=== PATIENT | male | born 1955 | race Caucasian/White ===

== ENCOUNTER 2016-11-25 13:34 | Inpatient (IN) | payer MEDICARE ==
[~2016-11-25] VITALS: Ht 200.7 cm; Wt 117.0 kg
[2016-11-25] MEDS ORDERED: MORPHINE SULFATE 4 MG/ML DISP.SYRIN. IV/SQ PRN (14:00)
[2016-11-25] MEDS ORDERED: ASPIRIN 325 MG TABLET PO ONE (14:00)
[2016-11-25 14:08] LABS: BASO # 0.1 x10^3/uL (0.0-0.2); BASO % 1 % (0-3); EOS % 2 % (0-3); HEMATOCRIT 50.4 % (39.0-53.0); HEMOGLOBIN 17.3 g/dL (13.0-17.5); LYMPH # 3.1 x10^3/uL (1.0-4.8); LYMPH % 38 % (24-48); MEAN CORPUSCULAR HEMOGLOBIN 33 pg (25-35); MEAN CORPUSCULAR HGB CONC 34 g/dL (31-37); MEAN CORPUSCULAR VOLUME 96 fL (79-100); MONO % 7 % (0-9); NEUT % 52 % (31-73); PLATELET COUNT 188 x10^3/uL (140-400); RED BLOOD COUNT 5.25 x10^6/uL (4.30-5.70); RED CELL DISTRIBUTION WIDTH 14.3 % (11.5-14.5)
[2016-11-25 14:18] LABS: INR 1.2 (0.8-1.1); PROTHROMBIN TIME PATIENT 14.5 SEC (11.7-14.0)
[2016-11-25 14:19] LABS: CALCIUM 8.5 mg/dL (8.5-10.1); CREATININE 1.1 mg/dL (0.7-1.3); GFR 67.6; POTASSIUM 3.9 mmol/L (3.5-5.1)
[2016-11-25 14:24] LABS: ALBUMIN 3.3 g/dL (3.4-5.0); ALBUMIN/GLOBULIN RATIO 0.9 (1.0-1.7); TOTAL BILIRUBIN 0.4 mg/dL (0.2-1.0); TOTAL PROTEIN 6.9 g/dL (6.4-8.2)
--- NOTE | 2016-11-25 14:30 | RAD ---
EXAM: Chest one view. HISTORY: Chest pain. COMPARISON: None. FINDINGS: A frontal view of the chest is obtained. There are no confluent infiltrates. Hyperinflation is consistent with chronic obstructive pulmonary disease. There is no pneumothorax or pleural effusion. The heart is not enlarged. IMPRESSION: 1. Chronic obstructive pulmonary disease. No confluent infiltrates.
--- NOTE | 2016-11-25 14:38 | PHYS DOC ---
Past Medical History Past Medical History: Bipolar, COPD, Depression, Pneumonia, Other Additional Past Medical Histor: Derier's disease, tremors Past Surgical History: Cholecystectomy, Tonsillectomy, Other Additional Past Surgical Histo: prosthetic rt eye, polyps in colon removed, Additional Information: 1ppd Alcohol Use: None Drug Use: None Adult General Chief Complaint Chief Complaint: CHEST PAIN HPI HPI Patient is a 61 year old male who presents with chest pain. The patient reports onset of symptoms 2 hours prior to arrival while smoking. He states pain is left sided/substernal, feels like tightness, radiates down left arm. He reports associated shortness of breath & diaphoresis/clamminess, but denies nausea. Denies fevers/chills, cough, lower extremity pain/swelling. Pain improving after receiving nitro by EMS en route, also received aspirin. He reports previous history of similar pain but he never saw a doctor for workup. He reports history of COPD. Family history of CVA in his mother. PCP at the [facility]. Review of Systems Review of Systems Constitutional: Denies fever or chills Eyes: Denies change in visual acuity HENT: Denies nasal congestion or sore throat Respiratory: Denies cough, reports shortness of breath Cardiovascular: Reports chest pain, denies edema GI: Denies abdominal pain, nausea, vomiting, bloody stools or diarrhea : Denies dysuria or hematuria Musculoskeletal: Denies back pain or joint pain Integument: Denies rash or skin lesions Neurologic: Denies headache, focal weakness or sensory changes Current Medications Current Medications Current Medications Medications (Trade) Dose Ordered Sig/Rajiv Start Time Stop Time Status Last Admin Dose Admin Aspirin (Maris Aspirin) 325 mg 1X ONCE 11/25/16 14:00 11/25/16 14:01 DC Morphine Sulfate 4 mg PRN Q15MIN PRN 11/25/16 14:00 11/25/16 19:48 DC Allergies Allergies Allergies Coded Allergies Type Severity Reaction Last Updated Verified No Known Drug Allergies 05/28/14 No Physical Exam Physical Exam Constitutional: Well developed, well nourished, no acute distress, non-toxic appearance. HENT: Normocephalic, atraumatic, bilateral external ears normal, oropharynx moist, nose normal. Eyes: conjunctiva normal, no discharge. Neck: supple, no stridor. Cardiovascular: RRR, no murmurs, no edema. Lungs & Thorax: LCTAB, no wheezing, no respiratory distress. no reproducible tenderness with palpation over the anterior chest wall. Abdomen: soft, nontender, nondistended. Skin: Warm, dry, no erythema, no rash. Back: No tenderness. Extremities: No tenderness, no edema. no calf tenderness or swelling. Neurologic: Alert and oriented X 3, no focal deficits noted. Psychologic: Affect normal, judgement normal, mood normal. Current Patient Data Vital Signs Vital Signs Date Time Temp Pulse Resp B/P (MAP) Pulse Ox O2 Delivery O2 Flow Rate FiO2 11/25/16 14:55 46 15 115/61 (79) 93 Room Air 11/25/16 13:34 98.0 98.0 Lab Values Laboratory Tests Test 11/25/16 13:55 White Blood Count 8.0 x10^3/uL (4.0-11.0) Red Blood Count 5.25 x10^6/uL (4.30-5.70) Hemoglobin 17.3 g/dL (13.0-17.5) Hematocrit 50.4 % (39.0-53.0) Mean Corpuscular Volume 96 fL (79-100) Mean Corpuscular Hemoglobin 33 pg (25-35) Mean Corpuscular Hemoglobin Concent 34 g/dL (31-37) Red Cell Distribution Width 14.3 % (11.5-14.5) Platelet Count 188 x10^3/uL (140-400) Neutrophils (%) (Auto) 52 % (31-73) Lymphocytes (%) (Auto) 38 % (24-48) Monocytes (%) (Auto) 7 % (0-9) Eosinophils (%) (Auto) 2 % (0-3) Basophils (%) (Auto) 1 % (0-3) Neutrophils # (Auto) 4.1 x10^3uL (1.8-7.7) Lymphocytes # (Auto) 3.1 x10^3/uL (1.0-4.8) Monocytes # (Auto) 0.6 x10^3/uL (0.0-1.1) Eosinophils # (Auto) 0.2 x10^3/uL (0.0-0.7) Basophils # (Auto) 0.1 x10^3/uL (0.0-0.2) Prothrombin Time 14.5 SEC (11.7-14.0) H Prothrombin Time INR 1.2 (0.8-1.1) H PTT 37 SEC (24-38) Sodium Level 139 mmol/L (136-145) Potassium Level 3.9 mmol/L (3.5-5.1) Chloride Level 105 mmol/L (98-107) Carbon Dioxide Level 25 mmol/L (21-32) Anion Gap 9 (6-14) Blood Urea Nitrogen 14 mg/dL (8-26) Creatinine 1.1 mg/dL (0.7-1.3) Estimated GFR (Cockcroft-Gault) 67.6 BUN/Creatinine Ratio 13 (6-20) Glucose Level 98 mg/dL (70-99) Calcium Level 8.5 mg/dL (8.5-10.1) Total Bilirubin 0.4 mg/dL (0.2-1.0) Aspartate Amino Transferase (AST) 14 U/L (15-37) L Alanine Aminotransferase (ALT) 20 U/L (16-63) Alkaline Phosphatase 53 U/L (46-116) Troponin I Quantitative < 0.017 ng/mL (0.000-0.055) TH-Mvx-B-Type Natriuretic Peptide 100 pg/mL (0-124) Total Protein 6.9 g/dL (6.4-8.2) Albumin 3.3 g/dL (3.4-5.0) L Albumin/Globulin Ratio 0.9 (1.0-1.7) L Laboratory Tests 11/25/16 13:55 Laboratory Tests 11/25/16 13:55 EKG EKG Interpreted by me: Sinus bradycardia rate 49, no acute ST or T wave changes, normal intervals, no ectopy. [] Radiology/Procedures Radiology/Procedures PROCEDURE: CHEST AP ONLY EXAM: Chest one view. HISTORY: Chest pain. COMPARISON: None. FINDINGS: A frontal view of the chest is obtained. There are no confluent infiltrates. Hyperinflation is consistent with chronic obstructive pulmonary disease. There is no pneumothorax or pleural effusion. The heart is not enlarged. IMPRESSION: 1. Chronic obstructive pulmonary disease. No confluent infiltrates. DICTATED and SIGNED BY: JUAN PABLO MCCARTNEY MD DATE: 11/25/16 4208 [] Course & Med Decision Making Course & Med Decision Making Pertinent Labs and Imaging studies reviewed. (See chart for details)The patient presents with chest pain. Gave aspirin & pain medication, obtained labs, EKG, CXR. NO acute abnormality identified. He has history of smoking but otherwise not a lot of risk factors for CAD. Discussed plan with patient, initial workup reassuring, offered admission vs. repeat enzymes with follow up. [facility] & poor follow up particularly with this being the weekend. he has previous pain never evaluated, prefers to stay in the hospital. Discussed with Dr. Isaacs who agrees to admit to inpatient status. Cardiology consult to Dr. Mead. The patient is admitted in stable condition. [] Dragon Disclaimer Dragon Disclaimer This electronic medical record was generated, in whole or in part, using a voice recognition dictation system. Departure Departure Impression: Primary Impression: Chest pain Disposition: ADMITTED INPATIENT Admitting Physician: Enriqueta Isaacs Condition: STABLE Referrals: ALEC HERRON (PCP) JUSTO NELSON MD Nov 25, 2016 14:38
--- NOTE | 2016-11-25 14:40 | EKG ---
[facility] [address] [place] [address] Test Date: 2016-11-25 Test Time: 13:37:01 Pat Name: LINDA WATSON Department: Room: Gender: M Urologic Surgeon: : 1955 Requested By: JUSTO NELSON Order Number: [id number] Reading MD: Gian Dietrich Measurements Intervals [place] Rate: 49 P: 55 SD: 178 QRS: 70 QRSD: 92 T: 43 QT: 470 QTc: 423 Interpretive Statements SINUS BRADYCARDIA QRS(T) CONTOUR ABNORMALITY CANNOT RULE OUT ANTEROSEPTAL MYOCARDIAL DAMAGE RI6.01 Unconfirmed report No previous ECG available for comparison Electronically Signed On 11-27-2016 10:53:54 CDT by Gian Dietrich
[2016-11-25] MEDS ORDERED: SIMV80TA3 PO (15:06)
[2016-11-25] MEDS ORDERED: LORA0.5T PO (15:06)
[2016-11-25] MEDS ORDERED: TAMS0.4C2 PO (15:06)
[2016-11-25] MEDS ORDERED: BUPR300T4 PO (15:06)
[2016-11-25] MEDS ORDERED: RISP4TAB2 PO (15:06)
[2016-11-25] MEDS ORDERED: CHOL10003 PO (15:06)
[2016-11-25] MEDS ORDERED: METH-38 PO (15:06)
[2016-11-25] MEDS ORDERED: DIVA500T17 PO (15:06)
[2016-11-25] MEDS ORDERED: MORPHINE SULFATE 4 MG/ML DISP.SYRIN. IV PRN (15:15)
[2016-11-25] MEDS ORDERED: NITROGLYCERIN SUBLINGUAL 0.4 MG BOTTLE OF 25. SL PRN (15:15)
[2016-11-25] MEDS ORDERED: ONDANSETRON PF 4 MG/2 ML VIAL. IV PRN (15:15)
[2016-11-25] MEDS ORDERED: ACETAMINOPHEN 325 MG TABLET. PO PRN (15:15)
[2016-11-25 17:00] VITALS: BP 128/54
[2016-11-25] MEDS ORDERED: LOPE2CAP88 PO (17:40)
--- NOTE | 2016-11-25 18:37 | ACF ---
Admission Forms Criteria CARDIOLOGY GRG Clinical Indications for Admission to Inpatient Care ( Place 'X' for any and all applicable criteria): Hospital admission is needed for appropriate care of the patient because of ANY ONE of the following (1): [ ] I. Hemodynamic instability as indicated by ALL of the following (1)(2)(3) (4)(5) [ ]a) Vital signs or other findings not as expected for chronic patient condition or baseline [ ]b) Instability indicated by ANY ONE of the following: [ ]i) Hypotension [ ]ii) Symptomatic Tachycardia unresponsive to treatment ( e.g., analgesia, fluids, sedation as indicated) [ ]iii) Inadequate perfusion indicated by ANY ONE of the following: [ ] 1) Lactic acidosis (> 2 mmol/L) [ ] 2) New abnormal capillary refill (> 3 seconds) [ ] 3) Reduced urine output [ ] 4) New altered mental status [ ]iv) Orthostatic vital sign changes unresponsive to treatment (e.g., fluids) [ ]v) IV inotropic or vasopressor medication required to maintain adequate blood pressure or perfusion [ ] II. Severe heart failure as indicated by ANY ONE of the following(17)(18) [ ]a) Respiratory distress [ ]b) Hypotension [ ]c) Anasarca (refractory to outpatient therapy) [ ]d) Cardiac arrhythmias of immediate concern [ ]e) Myocardial ischemia [ ] III. Cardiac arrhythmias or findings of immediate concern indicated by ANY ONE of the following (19)(20): [ ] a) Heart rhythms that are inherently dangerous or unstable indicated by ANY ONE of the following (21)(22)(23): [ ] i) Resuscitated ventricular fibrillation or cardiac arrest [ ] ii) Ventricular escape rhythm [ ] iii) Sustained ventricular tachycardia (30 seconds or more of ventricular rhythm at greater than 100 beats per minute) [ ] iv) Nonsustained ventricular tachycardia and ANY ONE of the following: [ ] 1) Suspected cardiac ischemia as cause or consequence of ventricular tachycardia [ ] 2) In setting of acute myocarditis [ ] b) Unstable cardiac conduction defects indicated by ANY ONE of the following(23)(24)(25) [ ] i) Type II second-degree atrioventricular block [ ]ii) Third-degree atrioventricular block [ ]iii) New-onset left bundle branch block with suspected myocardial ischemia [ ]c) Any heart rhythm and ANY ONE of the following (21)(22)(26)(27) (28) [ ] i) Continuous long-term ECG monitoring needed (e.g., initiation of drug requiring monitoring for more than 24 hours) [ ] ii) Patient has automatic implanted cardioverter defibrillator that is repeatedly firing, malfunctioning, or in need of immediate adjustment of settings beyond the scope of ambulatory or observation care [ ]d) Heart rhythms of concern due to ANY ONE of the following: [ ] i) Hypotension [ ] ii) Respiratory distress [ ] iii) Association with other significant symptoms (e.g., bradycardia with syncope or ongoing dizziness, supraventricular tachycardia with chest pain (14)(15)(17) [ ] IV. Monitoring for cardiac contusion beyond the scope of observation care needed [A](30)(31)(32) [ ] V. Surgical or device complication (e.g., valve replacement complication , pacemaker dysfunction) (35)(41)(44)(45)(46) [ ] . Inpatient palliative care needed. [B](49) Also use Inpatient Palliative Care Criteria [ ] VII. Nonbacterial thrombotic (marantic) endocarditis (36)(43)(47)(48) [X ] VIII. Cardiology condition, symptom, or finding for which emergency and observation care has failed or are not considered appropriate. [ ] IX. Acute valvular disease requiring inpatient as indicated by ANY ONE of the following (41) [ ]a) Acute valvular regurgitation (42) [ ]b) Noninfectious valvulitis (43) [ ]c) Obstructive valve thrombosis [ ]d) Paravalvular leak [ ]e) Other significant valvular disorder remaining after emergency or observation level of care (as appropriate) [ ]X. Pericardial disease requiring inpatient treatment as indicated by ANY ONE of the following (33)(34)(35)(36)(37) [ ]a) Suspected tamponade (38)(39)(40) [ ]b) Hemopericardium [ ]c) Other significant pericardial disorder remaining after emergency or observation level of care (as appropriate) [ ] XI. Cardiac ischemia beyond scope of emergency and observation care. [ ] XII. Hypertension requiring inpatient treatment as indicated by ANY ONE of the following (6)(7)(8) [ ]a) SBP greater than 220 mm Hg or DBP greater than 120 mmHg despite treatment [ ]b) SBP greater than 140 mm Hg or DBP greater than 100 mm Hg with evidence of acute end organ damage as indicated by ANY ONE of the following [ ] i) Encephalopathy [ ] ii) Acute renal failure as indicated by new onset of ANY ONE of the following (9)(10)(11)(12)(13) [ ]1) 3-fold rise in serum creatinine from baseline [ ]2) Serum creatinine greater than 4 mg/dL ( 354 micromoles/L) with acute rise greater than 0.5 mg/dL (44.2 micromoles/L) [ ]3) Reduction of more than 75% in estimated glomerular filtration rate from baseline [ ]4) Estimated glomerular filtration rate less than 35 mL/min/1.73m2 (0.59 mL/sec/1.73m2) in child up to 18 years of age [ ]5) Cessation of urine output indicated by ALL of the following [ ]A. Adequate volume status [ ]B. Inadequate urine output as indicated by ANY ONE of the following [ ]a. Urine output less than 0.3 mL/kg/hr for 24 hours [ ]b. Anuria (urine output less than 0.1 mL/kg/hr) for 12 hours [ ] iii) Aortic dissection [ ] iv) Myocardial Ischemia [ ] v) Left ventricular heart failure [ ]vi) Retinal Hemorrhage [ ]vii) Other significant finding [ ]c) Hypertension in child requiring inpatient treatment as indicated by ALL of the following(14)(15)(16) [ ] i) Outpatient treatment not effective, not available, or not appropriate [ ]ii) SBP or DBP greater than 95th percentile for age [ ]iii) Evidence of acute end organ damage as indicated by ANY ONE of the following [ ]1) Altered mental status [ ]2) Acute renal failure as indicated by new onset of ANY ONE of the following(9)(10)(11)(12)(13) [ ]A. 3-fold rise in serum creatinine from baseline [ ]B. Serum creatinine greater than 4 mg/dL (354 micromoles/L) with acute rise greater than 0.5 mg/dL (44.2 micromoles/L) [ ]C. Reduction of more than 75% in estimated glomerular filtration rate from baseline [ ]D. Estimated glomerular filtration rate less than 35 mL/min/1.73m2 (0.59 mL/sec/1.73m2) in child up to 18 years of age [ ]E. Cessation of urine output indicated by ALL of the following [ ]a. Adequate volume status [ ]b. Inadequate urine output as indicated by ANY ONE of the following [ ]i) Urine output less than 0.3 mL/kg/hr for 24 hours [ ]ii) Anuria ( urine output less than 0.1 mL/kg/hr) for 12 hours [ ]3) Severe headache [ ]4) Visual disturbance [ ]5) Retinal hemorrhage [ ]6) Other significant finding [ ]XIII. Complications of transplanted heart indicated by ANY ONE of the following(61): [ ]a) Acute graft rejection requiring inpatient management (eg, intravenous immunosuppression)(62)(63) [ ]b) Acute graft heart failure indicated by ANY ONE of the following(64): [ ]i) Hemodynamic instability [ ]ii) Cardiac arrhythmias of immediate concern [ ]iii) Pulmonary edema that is very severe (eg, mechanical ventilation needed, imminent or likely, need for 100% oxygen to keep oxygen saturation above 90%) [ ]iv) Pulmonary edema that is persistent as indicated by ALL of the following: [ ]1) New need for oxygen therapy to keep oxygen saturation above 90% (or increased FiO2 need from baseline) [ ]2) Has not improved sufficiently with emergency department or observation care IV diuretics or other heart failure treatments[E] [ ]v) Altered mental status that is severe or persistent [ ]vi) Increased creatinine (new on laboratory test) with reduction of more than 50% in estimated glomerular filtration rate from baseline [ ]vii) Progressively (ongoing) rising creatinine (known from past laboratory test) with reduction of more than 25% in estimated glomerular filtration rate from baseline [ ]viii) Acute renal failure [ ]ix) Acute peripheral ischemia (eg, examination shows pulseless, cool, mottled, or cyanotic extremity) [ ]x) Pulmonary artery catheter monitoring needed [ ]xi) Other sign or symptom of heart failure requiring inpatient treatment (ie, too severe or not responsive to outpatient and observation care treatment) [ ]c) Infection requiring inpatient management (eg, Hemodynamic instability, need for intravenous antimicrobial treatment)(66)(67)(68)(69)(70) [ ]d) Cardiac allograft vasculopathy requiring inpatient management ( eg evidence of cardiac ischemia)(71) [ ]e) Other complication of transplanted heart (eg, stroke, severe pulmonary hypertension, severe valvular dysfunction) requiring inpatient management(72) The original [facility] content created by [facility] has been revised. The portions of the content which have been revised are identified through the use of italic text or in bold, and [facility] has neither reviewed nor approved the modified material. All other unmodified content is copyright [facility]. Please see references footnoted in the original [facility] edition 2016 Admission Criteria Met?: Yes HIEU ROJAS Nov 25, 2016 18:37
[2016-11-25] MEDS ORDERED: NICOTINE POLACRILEX 2MG GUM PACKAGE of 12. BC PRN (19:45)
[2016-11-25] MEDS ORDERED: NICOTINE 14MG PATCH. TD PRN (19:45)
[2016-11-25 19:56] VITALS: BP 134/84
--- NOTE | 2016-11-25 20:47 | PDOC1 ---
History and Physical Date of Admission Date of Admission DATE: 11/25/16 TIME: 20:37 Identification/Chief Complaint Chief Complaint chest pain Problems: Source Source: Chart review, Patient History of Present Illness History of Present Illness MR. Duran, is a 61 year old male admit from ER with acute chest pain, started 2 hours prior to arrival after working in his garden, then stopping for a smoke Acute 11/18 pain was left sided/substernal, w/ tightness, radiated down left arm. some dyspnea and sweaty. Episode lasted a short time, better with nitro given by EMS mult prior pain episodes, has never sought medical attention Past Medical History Cardiovascular: HTN Social History Smoke: <1 pack per day ALCOHOL: rare Drugs: None Current Medications Current Medications Current Medications Aspirin (Maris Aspirin) 325 mg 1X ONCE PO ; Start 11/25/16 at 14:00; Stop 11/25 at 14:01; Status DC Morphine Sulfate 4 mg PRN Q15MIN PRN IV/SQ PAIN GREATER THAN 3/10; Start at 14:00; Stop 11/25/16 at 19:48; Status DC Ondansetron HCl (Zofran) 4 mg PRN Q8HRS PRN IV NAUSEA/VOMITING; Start 11/25/16 at 15:15; Stop 11/26/16 at 15:14 Morphine Sulfate 4 mg PRN Q2HR PRN IV PAIN; Start 11/25/16 at 15:15; Stop 11/26 at 15:14 Acetaminophen (Tylenol) 650 mg PRN Q4HRS PRN PO FEVER; Start 11/25/16 at 15:15 ; Stop 11/26/16 at 15:14 Nitroglycerin (Nitrostat) 0.4 mg PRN Q5MIN PRN SL CHEST PAIN; Start 11/25/16 at 15:15; Stop 11/26/16 at 15:14 Nicotine (Nicoderm Cq 14mg) 1 patch PRN DAILY PRN TD SMOKING CESSATION; Start 11/25/16 at 19:45 Nicotine Polacrilex (Nicorette Gum) 1 each PRN Q1HR PRN BC SMOKING CESSATION; Start 11/25/16 at 19:45 Active Scripts Active Reported Imodium A-D (Loperamide HCl) 2 Mg Capsule 2 Mg PO DAILY Lorazepam 0.5 Mg Tablet 1 Tab PO DAILY Robaxin-750 (Methocarbamol) 750 Mg Tablet 1 Tab PO TID Tamsulosin Hcl 0.4 Mg Cap.er.24h 0.4 Mg PO DAILY Simvastatin 80 Mg Tablet 0.5 Tab PO QHS Risperidone 4 Mg Tablet 0.5 Tab PO QHS Vitamin D3 (Cholecalciferol (Vitamin D3)) 1,000 Unit Tablet 2 Tab PO DAILY Bupropion Xl (Bupropion Hcl) 300 Mg Tab.er.24h 1 Tab PO DAILYWBKFT Divalproex Sodium Er (Divalproex Sodium) 500 Mg Tab.er.24h 4 Tab PO QHS Allergies Allergies: Coded Allergies: No Known Drug Allergies (Unverified , 05/28/14) ROS General: YES: Fatigue, No: Chills, Night Sweats, Malaise, Appetite, Other PSYCHOLOGICAL ROS: No: Anxiety, Behavioral Disorder, Concentration difficultie , Decreased libido, Depression, Disorientation, Hallucinations, Hostility, Irritablity, Memory difficulties, Mood Swings, Obsessive thoughts, Physical abuse, Sexual abuse, Sleep disturbances, Suicidal ideation, Other Eyes: No Blurry vision, No Decreased vision, No Double vision, No Dry eyes, No Excessive tearing, No Eye Pain, No Itchy Eyes, No Loss of vision, No Photophobia , No Scotomata, No Uses contacts, No Uses glasses, No Other HEENT: No: Heacaches, Visual Changes, Hearing change, Nasal congestion, Nasal discharge, Oral lesions, Sinus pain, Sore Throat, Epistaxis, Sneezing, Snoring, Tinnitus, Vertigo, Vocal changes, Other Respiratory: No: Cough, Hemoptysis, Orthopnea, Pleuritic Pain, Shortness of breath, SOB with excertion, Sputum Changes, Stridor, Tachypnea, Wheezing, Other Cardiovascular: yes Chest Pain, No Palpitations, No Orthopnea, No Paroxysmal Noc. Dyspnea, No Edema, No Lt Headedness, No Other Gastrointestinal: Yes Nausea, No Vomiting, No Abdominal Pain, No Diarrhea, No Constipation, No Melena, No Hematochezia, No Other Genitourinary: No Dysuria, No Frequency, No Incontinence, No Hematuria, No Retention, No Discharge, No Urgency, No Pain, No Flank Pain, No Other, No , No , No , No , No , No , No Musculoskeletal: No Gait Disturbance, No Joint Pain, No Joint Stiffness, No Joint Swelling, No Muscle Pain, No Muscular Weakness, No Pain In:, No Swelling In:, No Other Neurological: No Behavorial Changes, No Bowel/Bladder ControlChng, No Confusion , No Dizziness, No Gait Disturbance, No Headaches, No Impaired Coord/balance, No Memory Loss, No Numbness/Tingling, No Seizures, No Speech Problems, No Tremors, No Visual Changes, No Weakness, No Other Skin: No Dry Skin, No Eczema, No Hair Changes, No Lumps, No Mole Changes, No Mottling, No Nail Changes, No Pruritus, No Rash, No Skin Lesion Changes, No Other, No Acne Physical Exam General: Alert, Oriented X3, Cooperative HEENT: Atraumatic, PERRLA Lungs: Clear to auscultation Abdomen: Normal bowel sounds, Soft Extremities: No clubbing, No edema Skin: No rashes, No significant lesion Neuro: Normal gait, Normal tone, Sensation intact, Cranial nerves 3-12 NL Psych/Mental Status: Mood NL Vitals Vitals Vital Signs Date Time Temp Pulse Resp B/P (MAP) Pulse Ox O2 Delivery O2 Flow Rate FiO2 11/25/16 19:56 98.1 55 16 134/84 (101) 94 Room Air 98.1 Labs Labs Laboratory Tests Test 11/25/16 13:55 White Blood Count 8.0 x10^3/uL (4.0-11.0) Red Blood Count 5.25 x10^6/uL (4.30-5.70) Hemoglobin 17.3 g/dL (13.0-17.5) Hematocrit 50.4 % (39.0-53.0) Mean Corpuscular Volume 96 fL (79-100) Mean Corpuscular Hemoglobin 33 pg (25-35) Mean Corpuscular Hemoglobin Concent 34 g/dL (31-37) Red Cell Distribution Width 14.3 % (11.5-14.5) Platelet Count 188 x10^3/uL (140-400) Neutrophils (%) (Auto) 52 % (31-73) Lymphocytes (%) (Auto) 38 % (24-48) Monocytes (%) (Auto) 7 % (0-9) Eosinophils (%) (Auto) 2 % (0-3) Basophils (%) (Auto) 1 % (0-3) Neutrophils # (Auto) 4.1 x10^3uL (1.8-7.7) Lymphocytes # (Auto) 3.1 x10^3/uL (1.0-4.8) Monocytes # (Auto) 0.6 x10^3/uL (0.0-1.1) Eosinophils # (Auto) 0.2 x10^3/uL (0.0-0.7) Basophils # (Auto) 0.1 x10^3/uL (0.0-0.2) Prothrombin Time 14.5 SEC (11.7-14.0) Prothromb Time International Ratio 1.2 (0.8-1.1) Activated Partial Thromboplast Time 37 SEC (24-38) Sodium Level 139 mmol/L (136-145) Potassium Level 3.9 mmol/L (3.5-5.1) Chloride Level 105 mmol/L (98-107) Carbon Dioxide Level 25 mmol/L (21-32) Anion Gap 9 (6-14) Blood Urea Nitrogen 14 mg/dL (8-26) Creatinine 1.1 mg/dL (0.7-1.3) Estimated GFR (Cockcroft-Gault) 67.6 BUN/Creatinine Ratio 13 (6-20) Glucose Level 98 mg/dL (70-99) Calcium Level 8.5 mg/dL (8.5-10.1) Total Bilirubin 0.4 mg/dL (0.2-1.0) Aspartate Amino Transf (AST/SGOT) 14 U/L (15-37) Alanine Aminotransferase (ALT/SGPT) 20 U/L (16-63) Alkaline Phosphatase 53 U/L (46-116) Troponin I Quantitative < 0.017 ng/mL (0.000-0.055) MO-Ssg-C-Type Natriuretic Peptide 100 pg/mL (0-124) Total Protein 6.9 g/dL (6.4-8.2) Albumin 3.3 g/dL (3.4-5.0) Albumin/Globulin Ratio 0.9 (1.0-1.7) Laboratory Tests Test 11/25/16 13:55 White Blood Count 8.0 x10^3/uL (4.0-11.0) Red Blood Count 5.25 x10^6/uL (4.30-5.70) Hemoglobin 17.3 g/dL (13.0-17.5) Hematocrit 50.4 % (39.0-53.0) Mean Corpuscular Volume 96 fL (79-100) Mean Corpuscular Hemoglobin 33 pg (25-35) Mean Corpuscular Hemoglobin Concent 34 g/dL (31-37) Red Cell Distribution Width 14.3 % (11.5-14.5) Platelet Count 188 x10^3/uL (140-400) Neutrophils (%) (Auto) 52 % (31-73) Lymphocytes (%) (Auto) 38 % (24-48) Monocytes (%) (Auto) 7 % (0-9) Eosinophils (%) (Auto) 2 % (0-3) Basophils (%) (Auto) 1 % (0-3) Neutrophils # (Auto) 4.1 x10^3uL (1.8-7.7) Lymphocytes # (Auto) 3.1 x10^3/uL (1.0-4.8) Monocytes # (Auto) 0.6 x10^3/uL (0.0-1.1) Eosinophils # (Auto) 0.2 x10^3/uL (0.0-0.7) Basophils # (Auto) 0.1 x10^3/uL (0.0-0.2) Prothrombin Time 14.5 SEC (11.7-14.0) Prothromb Time International Ratio 1.2 (0.8-1.1) Activated Partial Thromboplast Time 37 SEC (24-38) Sodium Level 139 mmol/L (136-145) Potassium Level 3.9 mmol/L (3.5-5.1) Chloride Level 105 mmol/L (98-107) Carbon Dioxide Level 25 mmol/L (21-32) Anion Gap 9 (6-14) Blood Urea Nitrogen 14 mg/dL (8-26) Creatinine 1.1 mg/dL (0.7-1.3) Estimated GFR (Cockcroft-Gault) 67.6 BUN/Creatinine Ratio 13 (6-20) Glucose Level 98 mg/dL (70-99) Calcium Level 8.5 mg/dL (8.5-10.1) Total Bilirubin 0.4 mg/dL (0.2-1.0) Aspartate Amino Transf (AST/SGOT) 14 U/L (15-37) Alanine Aminotransferase (ALT/SGPT) 20 U/L (16-63) Alkaline Phosphatase 53 U/L (46-116) Troponin I Quantitative < 0.017 ng/mL (0.000-0.055) EZ-Xqs-B-Type Natriuretic Peptide 100 pg/mL (0-124) Total Protein 6.9 g/dL (6.4-8.2) Albumin 3.3 g/dL (3.4-5.0) Albumin/Globulin Ratio 0.9 (1.0-1.7) VTE Prophylaxis Ordered VTE Prophylaxis Devices: No VTE Pharmacological Prophylaxi: No Assessment/Plan Assessment/Plan angina, consult CV to det. stability, initial trop neg tobaccoism COPD admit obs VAN REMY MD Nov 25, 2016 20:47
[2016-11-25] MEDS ORDERED: risperiDONE 1 MG TABLET. PO SCH (21:00)
[2016-11-25] MEDS ORDERED: DIVALPROEX EXTENDED RELEASE 500 MG TAB.ER.24H. PO SCH (21:00)
[2016-11-25] MEDS ORDERED: SIMVASTATIN 40 MG TABLET. PO SCH (21:00)
[2016-11-25] MEDS: METHOCARBAMOL 750 MG TABLET PO SCH (21:26)
[2016-11-25 23:48] VITALS: BP 132/72
[2016-11-26 03:08] VITALS: BP 119/76
[2016-11-26 05:11] LABS: BASO % 0 % (0-3); EOS % 3 % (0-3); HEMATOCRIT 50.8 % (39.0-53.0); HEMOGLOBIN 16.7 g/dL (13.0-17.5); LYMPH # 3.5 x10^3/uL (1.0-4.8); LYMPH % 40 % (24-48); MEAN CORPUSCULAR HEMOGLOBIN 32 pg (25-35); MEAN CORPUSCULAR HGB CONC 33 g/dL (31-37); MEAN CORPUSCULAR VOLUME 98 fL (79-100); MONO % 8 % (0-9); NEUT % 48 % (31-73); PLATELET COUNT 227 x10^3/uL (140-400); RED BLOOD COUNT 5.18 x10^6/uL (4.30-5.70); RED CELL DISTRIBUTION WIDTH 15.4 % (11.5-14.5); WHITE BLOOD COUNT 8.7 x10^3/uL (4.0-11.0)
[2016-11-26 05:37] LABS: ALBUMIN 3.5 g/dL (3.4-5.0); CALCIUM 8.9 mg/dL (8.5-10.1); CREATININE 1.2 mg/dL (0.7-1.3); GFR 61.1; POTASSIUM 4.7 mmol/L (3.5-5.1); TOTAL BILIRUBIN 0.3 mg/dL (0.2-1.0); TOTAL PROTEIN 7.1 g/dL (6.4-8.2)
[2016-11-26 05:38] LABS: CHOLESTEROL/HDL RATIO 3.7
[2016-11-26 07:00] VITALS: BP_SYST 119; BP_SYST 135; BP_DIAS 76; BP_DIAS 78
[2016-11-26] MEDS ORDERED: buPROPion XL 150 MG TAB.ER.24H. PO SCH (08:00)
[2016-11-26] MEDS: METHOCARBAMOL 750 MG TABLET PO SCH (08:12)
[2016-11-26] MEDS ORDERED: LORazepam 0.5 MG TABLET PO SCH (09:00)
[2016-11-26] MEDS ORDERED: LOPERAMIDE 2 MG CAPSULE PO SCH (09:00)
[2016-11-26] MEDS ORDERED: TAMSULOSIN 0.4 MG CAP.ER.24H. PO SCH (09:00)
[2016-11-26 11:00] VITALS: BP 127/80
--- NOTE | 2016-11-26 11:16 | PDOC3 ---
Discharge Summary Visit Information Date of Admission: Nov 25, 2016 Date of Discharge: Nov 26, 2016 Admitting Diagnosis: chest pain Final Diagnosis angina, consult CV to det. stability, initial trop neg tobaccoism COPD anxiety d/o , PTSD BPH Brief Hospital Course Allergies Allergies Coded Allergies Type Severity Reaction Last Updated Verified No Known Drug Allergies 05/28/14 No Vital Signs Vital Signs Date Time Temp Pulse Resp B/P (MAP) Pulse Ox O2 Delivery O2 Flow Rate FiO2 11/26/16 08:00 Room Air 11/26/16 07:00 97.6 50 16 135/78 (97) 94 97.6 Lab Results Laboratory Tests Test 11/25/16 13:55 11/25/16 21:15 11/26/16 03:38 White Blood Count 8.0 x10^3/uL (4.0-11.0) 8.7 x10^3/uL (4.0-11.0) Red Blood Count 5.25 x10^6/uL (4.30-5.70) 5.18 x10^6/uL (4.30-5.70) Hemoglobin 17.3 g/dL (13.0-17.5) 16.7 g/dL (13.0-17.5) Hematocrit 50.4 % (39.0-53.0) 50.8 % (39.0-53.0) Mean Corpuscular Volume 96 fL (79-100) 98 fL (79-100) Mean Corpuscular Hemoglobin 33 pg (25-35) 32 pg (25-35) Mean Corpuscular Hemoglobin Concent 34 g/dL (31-37) 33 g/dL (31-37) Red Cell Distribution Width 14.3 % (11.5-14.5) 15.4 % (11.5-14.5) Platelet Count 188 x10^3/uL (140-400) 227 x10^3/uL (140-400) Neutrophils (%) (Auto) 52 % (31-73) 48 % (31-73) Lymphocytes (%) (Auto) 38 % (24-48) 40 % (24-48) Monocytes (%) (Auto) 7 % (0-9) 8 % (0-9) Eosinophils (%) (Auto) 2 % (0-3) 3 % (0-3) Basophils (%) (Auto) 1 % (0-3) 0 % (0-3) Neutrophils # (Auto) 4.1 x10^3uL (1.8-7.7) 4.2 x10^3uL (1.8-7.7) Lymphocytes # (Auto) 3.1 x10^3/uL (1.0-4.8) 3.5 x10^3/uL (1.0-4.8) Monocytes # (Auto) 0.6 x10^3/uL (0.0-1.1) 0.7 x10^3/uL (0.0-1.1) Eosinophils # (Auto) 0.2 x10^3/uL (0.0-0.7) 0.3 x10^3/uL (0.0-0.7) Basophils # (Auto) 0.1 x10^3/uL (0.0-0.2) 0.0 x10^3/uL (0.0-0.2) Prothrombin Time 14.5 SEC (11.7-14.0) Prothromb Time International Ratio 1.2 (0.8-1.1) Activated Partial Thromboplast Time 37 SEC (24-38) Sodium Level 139 mmol/L (136-145) 143 mmol/L (136-145) Potassium Level 3.9 mmol/L (3.5-5.1) 4.7 mmol/L (3.5-5.1) Chloride Level 105 mmol/L (98-107) 104 mmol/L (98-107) Carbon Dioxide Level 25 mmol/L (21-32) 29 mmol/L (21-32) Anion Gap 9 (6-14) 10 (6-14) Blood Urea Nitrogen 14 mg/dL (8-26) 15 mg/dL (8-26) Creatinine 1.1 mg/dL (0.7-1.3) 1.2 mg/dL (0.7-1.3) Estimated GFR (Cockcroft-Gault) 67.6 61.1 BUN/Creatinine Ratio 13 (6-20) 13 (6-20) Glucose Level 98 mg/dL (70-99) 45 mg/dL (70-99) Calcium Level 8.5 mg/dL (8.5-10.1) 8.9 mg/dL (8.5-10.1) Total Bilirubin 0.4 mg/dL (0.2-1.0) 0.3 mg/dL (0.2-1.0) Aspartate Amino Transf (AST/SGOT) 14 U/L (15-37) 15 U/L (15-37) Alanine Aminotransferase (ALT/SGPT) 20 U/L (16-63) 29 U/L (16-63) Alkaline Phosphatase 53 U/L (46-116) 52 U/L (46-116) Troponin I Quantitative < 0.017 ng/mL (0.000-0.055) < 0.017 ng/mL (0.000-0.055) < 0.017 ng/mL (0.000-0.055) HD-Ium-L-Type Natriuretic Peptide 100 pg/mL (0-124) Total Protein 6.9 g/dL (6.4-8.2) 7.1 g/dL (6.4-8.2) Albumin 3.3 g/dL (3.4-5.0) 3.5 g/dL (3.4-5.0) Albumin/Globulin Ratio 0.9 (1.0-1.7) 1.0 (1.0-1.7) Triglycerides Level 174 mg/dL (0-150) Cholesterol Level 129 mg/dL (0-200) LDL Cholesterol, Calculated 59 mg/dL (0-100) VLDL Cholesterol, Calculated 35 mg/dL (0-40) Non-HDL Cholesterol Calculated 94 mg/dL (0-129) HDL Cholesterol 35 mg/dL (40-60) Cholesterol/HDL Ratio 3.7 Laboratory Tests Test 11/25/16 13:55 11/25/16 21:15 11/26/16 03:38 White Blood Count 8.0 x10^3/uL (4.0-11.0) 8.7 x10^3/uL (4.0-11.0) Red Blood Count 5.25 x10^6/uL (4.30-5.70) 5.18 x10^6/uL (4.30-5.70) Hemoglobin 17.3 g/dL (13.0-17.5) 16.7 g/dL (13.0-17.5) Hematocrit 50.4 % (39.0-53.0) 50.8 % (39.0-53.0) Mean Corpuscular Volume 96 fL (79-100) 98 fL (79-100) Mean Corpuscular Hemoglobin 33 pg (25-35) 32 pg (25-35) Mean Corpuscular Hemoglobin Concent 34 g/dL (31-37) 33 g/dL (31-37) Red Cell Distribution Width 14.3 % (11.5-14.5) 15.4 % (11.5-14.5) Platelet Count 188 x10^3/uL (140-400) 227 x10^3/uL (140-400) Neutrophils (%) (Auto) 52 % (31-73) 48 % (31-73) Lymphocytes (%) (Auto) 38 % (24-48) 40 % (24-48) Monocytes (%) (Auto) 7 % (0-9) 8 % (0-9) Eosinophils (%) (Auto) 2 % (0-3) 3 % (0-3) Basophils (%) (Auto) 1 % (0-3) 0 % (0-3) Neutrophils # (Auto) 4.1 x10^3uL (1.8-7.7) 4.2 x10^3uL (1.8-7.7) Lymphocytes # (Auto) 3.1 x10^3/uL (1.0-4.8) 3.5 x10^3/uL (1.0-4.8) Monocytes # (Auto) 0.6 x10^3/uL (0.0-1.1) 0.7 x10^3/uL (0.0-1.1) Eosinophils # (Auto) 0.2 x10^3/uL (0.0-0.7) 0.3 x10^3/uL (0.0-0.7) Basophils # (Auto) 0.1 x10^3/uL (0.0-0.2) 0.0 x10^3/uL (0.0-0.2) Prothrombin Time 14.5 SEC (11.7-14.0) Prothromb Time International Ratio 1.2 (0.8-1.1) Activated Partial Thromboplast Time 37 SEC (24-38) Sodium Level 139 mmol/L (136-145) 143 mmol/L (136-145) Potassium Level 3.9 mmol/L (3.5-5.1) 4.7 mmol/L (3.5-5.1) Chloride Level 105 mmol/L (98-107) 104 mmol/L (98-107) Carbon Dioxide Level 25 mmol/L (21-32) 29 mmol/L (21-32) Anion Gap 9 (6-14) 10 (6-14) Blood Urea Nitrogen 14 mg/dL (8-26) 15 mg/dL (8-26) Creatinine 1.1 mg/dL (0.7-1.3) 1.2 mg/dL (0.7-1.3) Estimated GFR (Cockcroft-Gault) 67.6 61.1 BUN/Creatinine Ratio 13 (6-20) 13 (6-20) Glucose Level 98 mg/dL (70-99) 45 mg/dL (70-99) Calcium Level 8.5 mg/dL (8.5-10.1) 8.9 mg/dL (8.5-10.1) Total Bilirubin 0.4 mg/dL (0.2-1.0) 0.3 mg/dL (0.2-1.0) Aspartate Amino Transf (AST/SGOT) 14 U/L (15-37) 15 U/L (15-37) Alanine Aminotransferase (ALT/SGPT) 20 U/L (16-63) 29 U/L (16-63) Alkaline Phosphatase 53 U/L (46-116) 52 U/L (46-116) Troponin I Quantitative < 0.017 ng/mL (0.000-0.055) < 0.017 ng/mL (0.000-0.055) < 0.017 ng/mL (0.000-0.055) OE-Hwp-D-Type Natriuretic Peptide 100 pg/mL (0-124) Total Protein 6.9 g/dL (6.4-8.2) 7.1 g/dL (6.4-8.2) Albumin 3.3 g/dL (3.4-5.0) 3.5 g/dL (3.4-5.0) Albumin/Globulin Ratio 0.9 (1.0-1.7) 1.0 (1.0-1.7) Triglycerides Level 174 mg/dL (0-150) Cholesterol Level 129 mg/dL (0-200) LDL Cholesterol, Calculated 59 mg/dL (0-100) VLDL Cholesterol, Calculated 35 mg/dL (0-40) Non-HDL Cholesterol Calculated 94 mg/dL (0-129) HDL Cholesterol 35 mg/dL (40-60) Cholesterol/HDL Ratio 3.7 Brief Hospital Course Mr. Morin is a 61 old male, admit with chest pain at rest. r/o ACS, lipids at goal. pain gone in AM pt would prefer to f.u stress testing at [facility], his PCP is there, he will call to arrange. tobacco cessation recommended Discharge Information Condition at Discharge: Improved Follow Up: Weeks Disposition/Orders: D/C to Home Scheduled Bupropion Hcl (Bupropion Xl), 1 TAB PO DAILYWBKFT, (Reported) Cholecalciferol (Vitamin D3) (Vitamin D3), 2 TAB PO DAILY, (Reported) Divalproex Sodium (Divalproex Sodium Er), 4 TAB PO QHS, (Reported) Loperamide HCl (Imodium A-D), 2 MG PO DAILY, (Reported) Lorazepam (Lorazepam), 1 TAB PO DAILY, (Reported) Methocarbamol (Robaxin-750), 1 TAB PO TID, (Reported) Risperidone (Risperidone), 0.5 TAB PO QHS, (Reported) Simvastatin (Simvastatin), 0.5 TAB PO QHS, (Reported) Tamsulosin Hcl (Tamsulosin Hcl), 0.4 MG PO DAILY, (Reported) VAN REMY MD Nov 26, 2016 11:16
--- NOTE | 2016-11-26 11:41 | PDOC2 ---
CONSULT Date of Consult Date of Consult DATE: 11/26/16 TIME: 11:41 Reason for Consult Reason for Consult: Chest pain Referring Physician Referring Physician: Dr. Isaacs Identification/Chief Complaint Chief Complaint Chest pain Source Source: Patient History of Present Illness Reason for Visit: 61-year-old male presented with retrosternal chest pain that he described as sharp in nature, 7/10 severity that started 2 hours prior to presentation while he was working in his garden and stopped to smoke a cigarette. The pain radiated to his left arm. He denied any recent chest pain or dyspnea on exertion. He also denied any palpitations or syncope. Past Medical History Cardiovascular: HTN Past Surgical History Past Surgical History: No pertinent history Social History <1 pack per day ALCOHOL: rare Drugs: None Current Medications Current Medications Current Medications Aspirin (Maris Aspirin) 325 mg 1X ONCE PO ; Start 11/25/16 at 14:00; Stop 11/25 at 14:01; Status DC Morphine Sulfate 4 mg PRN Q15MIN PRN IV/SQ PAIN GREATER THAN 3/10; Start at 14:00; Stop 11/25/16 at 19:48; Status DC Ondansetron HCl (Zofran) 4 mg PRN Q8HRS PRN IV NAUSEA/VOMITING; Start 11/25/16 at 15:15; Stop 11/26/16 at 15:14 Morphine Sulfate 4 mg PRN Q2HR PRN IV PAIN; Start 11/25/16 at 15:15; Stop 11/26 at 15:14 Acetaminophen (Tylenol) 650 mg PRN Q4HRS PRN PO FEVER; Start 11/25/16 at 15:15 ; Stop 11/26/16 at 15:14 Nitroglycerin (Nitrostat) 0.4 mg PRN Q5MIN PRN SL CHEST PAIN; Start 11/25/16 at 15:15; Stop 11/26/16 at 15:14 Nicotine (Nicoderm Cq 14mg) 1 patch PRN DAILY PRN TD SMOKING CESSATION Last administered on 11/25/16t 21:26; Start 11/25/16 at 19:45 Nicotine Polacrilex (Nicorette Gum) 1 each PRN Q1HR PRN BC SMOKING CESSATION; Start 11/25/16 at 19:45 Divalproex Sodium (Depakote Er) 2,000 mg QHS PO Last administered on 11/25/16 21:27; Start 11/25/16 at 21:00 Loperamide HCl (Imodium) 2 mg DAILY PO Last administered on 11/26/16 08:12; Start 11/26/16 at 09:00 Lorazepam (Ativan) 0.5 mg DAILY PO Last administered on 11/26/16 08:12; Start 11/26/16 at 09:00 Methocarbamol (Robaxin) 750 mg TID PO Last administered on 11/26/16 08:12; Start 11/25/16 at 21:00 Tamsulosin HCl (Flomax) 0.4 mg DAILY PO Last administered on 11/26/16 08:12; Start 11/26/16 at 09:00 Bupropion HCl (Wellbutrin Xl) 300 mg DAILYWBKFT PO Last administered on 08:11; Start 11/26/16 at 08:00 Risperidone (RisperDAL) 2 mg QHS PO Last administered on 11/25/16 21:26; Start 11/25/16 at 21:00 Simvastatin (Zocor) 40 mg QHS PO Last administered on 11/25/16 21:00; Start at 21:00 Active Scripts Active Reported Imodium A-D (Loperamide HCl) 2 Mg Capsule 2 Mg PO DAILY Lorazepam 0.5 Mg Tablet 1 Tab PO DAILY Robaxin-750 (Methocarbamol) 750 Mg Tablet 1 Tab PO TID Tamsulosin Hcl 0.4 Mg Cap.er.24h 0.4 Mg PO DAILY Simvastatin 80 Mg Tablet 0.5 Tab PO QHS Risperidone 4 Mg Tablet 0.5 Tab PO QHS Vitamin D3 (Cholecalciferol (Vitamin D3)) 1,000 Unit Tablet 2 Tab PO DAILY Bupropion Xl (Bupropion Hcl) 300 Mg Tab.er.24h 1 Tab PO DAILYWBKFT Divalproex Sodium Er (Divalproex Sodium) 500 Mg Tab.er.24h 4 Tab PO QHS Allergies Allergies: Coded Allergies: No Known Drug Allergies (Unverified , 05/28/14) ROS PSYCHOLOGICAL ROS: No: Hallucinations Eyes: No Loss of vision HEENT: No: Epistaxis Respiratory: No: Hemoptysis, Shortness of breath Cardiovascular: yes Chest Pain Gastrointestinal: No Diarrhea Genitourinary: No Hematuria Neurological: No Seizures Skin: No Rash Physical Exam General: Alert, Oriented X3 HEENT: Atraumatic, PERRLA Lungs: Clear to auscultation Heart: Regular rate, No murmurs Abdomen: Soft Extremities: No edema Psych/Mental Status: Mood NL Vitals VITALS Vital Signs Date Time Temp Pulse Resp B/P (MAP) Pulse Ox O2 Delivery O2 Flow Rate FiO2 11/26/16 08:00 Room Air 11/26/16 07:00 97.6 50 16 135/78 (97) 94 97.6 Labs Labs Laboratory Tests Test 11/25/16 13:55 11/25/16 21:15 11/26/16 03:38 White Blood Count 8.0 x10^3/uL (4.0-11.0) 8.7 x10^3/uL (4.0-11.0) Red Blood Count 5.25 x10^6/uL (4.30-5.70) 5.18 x10^6/uL (4.30-5.70) Hemoglobin 17.3 g/dL (13.0-17.5) 16.7 g/dL (13.0-17.5) Hematocrit 50.4 % (39.0-53.0) 50.8 % (39.0-53.0) Mean Corpuscular Volume 96 fL (79-100) 98 fL (79-100) Mean Corpuscular Hemoglobin 33 pg (25-35) 32 pg (25-35) Mean Corpuscular Hemoglobin Concent 34 g/dL (31-37) 33 g/dL (31-37) Red Cell Distribution Width 14.3 % (11.5-14.5) 15.4 % (11.5-14.5) Platelet Count 188 x10^3/uL (140-400) 227 x10^3/uL (140-400) Neutrophils (%) (Auto) 52 % (31-73) 48 % (31-73) Lymphocytes (%) (Auto) 38 % (24-48) 40 % (24-48) Monocytes (%) (Auto) 7 % (0-9) 8 % (0-9) Eosinophils (%) (Auto) 2 % (0-3) 3 % (0-3) Basophils (%) (Auto) 1 % (0-3) 0 % (0-3) Neutrophils # (Auto) 4.1 x10^3uL (1.8-7.7) 4.2 x10^3uL (1.8-7.7) Lymphocytes # (Auto) 3.1 x10^3/uL (1.0-4.8) 3.5 x10^3/uL (1.0-4.8) Monocytes # (Auto) 0.6 x10^3/uL (0.0-1.1) 0.7 x10^3/uL (0.0-1.1) Eosinophils # (Auto) 0.2 x10^3/uL (0.0-0.7) 0.3 x10^3/uL (0.0-0.7) Basophils # (Auto) 0.1 x10^3/uL (0.0-0.2) 0.0 x10^3/uL (0.0-0.2) Prothrombin Time 14.5 SEC (11.7-14.0) Prothromb Time International Ratio 1.2 (0.8-1.1) Activated Partial Thromboplast Time 37 SEC (24-38) Sodium Level 139 mmol/L (136-145) 143 mmol/L (136-145) Potassium Level 3.9 mmol/L (3.5-5.1) 4.7 mmol/L (3.5-5.1) Chloride Level 105 mmol/L (98-107) 104 mmol/L (98-107) Carbon Dioxide Level 25 mmol/L (21-32) 29 mmol/L (21-32) Anion Gap 9 (6-14) 10 (6-14) Blood Urea Nitrogen 14 mg/dL (8-26) 15 mg/dL (8-26) Creatinine 1.1 mg/dL (0.7-1.3) 1.2 mg/dL (0.7-1.3) Estimated GFR (Cockcroft-Gault) 67.6 61.1 BUN/Creatinine Ratio 13 (6-20) 13 (6-20) Glucose Level 98 mg/dL (70-99) 45 mg/dL (70-99) Calcium Level 8.5 mg/dL (8.5-10.1) 8.9 mg/dL (8.5-10.1) Total Bilirubin 0.4 mg/dL (0.2-1.0) 0.3 mg/dL (0.2-1.0) Aspartate Amino Transf (AST/SGOT) 14 U/L (15-37) 15 U/L (15-37) Alanine Aminotransferase (ALT/SGPT) 20 U/L (16-63) 29 U/L (16-63) Alkaline Phosphatase 53 U/L (46-116) 52 U/L (46-116) Troponin I Quantitative < 0.017 ng/mL (0.000-0.055) < 0.017 ng/mL (0.000-0.055) < 0.017 ng/mL (0.000-0.055) KY-Oiz-Y-Type Natriuretic Peptide 100 pg/mL (0-124) Total Protein 6.9 g/dL (6.4-8.2) 7.1 g/dL (6.4-8.2) Albumin 3.3 g/dL (3.4-5.0) 3.5 g/dL (3.4-5.0) Albumin/Globulin Ratio 0.9 (1.0-1.7) 1.0 (1.0-1.7) Triglycerides Level 174 mg/dL (0-150) Cholesterol Level 129 mg/dL (0-200) LDL Cholesterol, Calculated 59 mg/dL (0-100) VLDL Cholesterol, Calculated 35 mg/dL (0-40) Non-HDL Cholesterol Calculated 94 mg/dL (0-129) HDL Cholesterol 35 mg/dL (40-60) Cholesterol/HDL Ratio 3.7 Laboratory Tests Test 11/25/16 13:55 11/25/16 21:15 11/26/16 03:38 White Blood Count 8.0 x10^3/uL (4.0-11.0) 8.7 x10^3/uL (4.0-11.0) Red Blood Count 5.25 x10^6/uL (4.30-5.70) 5.18 x10^6/uL (4.30-5.70) Hemoglobin 17.3 g/dL (13.0-17.5) 16.7 g/dL (13.0-17.5) Hematocrit 50.4 % (39.0-53.0) 50.8 % (39.0-53.0) Mean Corpuscular Volume 96 fL (79-100) 98 fL (79-100) Mean Corpuscular Hemoglobin 33 pg (25-35) 32 pg (25-35) Mean Corpuscular Hemoglobin Concent 34 g/dL (31-37) 33 g/dL (31-37) Red Cell Distribution Width 14.3 % (11.5-14.5) 15.4 % (11.5-14.5) Platelet Count 188 x10^3/uL (140-400) 227 x10^3/uL (140-400) Neutrophils (%) (Auto) 52 % (31-73) 48 % (31-73) Lymphocytes (%) (Auto) 38 % (24-48) 40 % (24-48) Monocytes (%) (Auto) 7 % (0-9) 8 % (0-9) Eosinophils (%) (Auto) 2 % (0-3) 3 % (0-3) Basophils (%) (Auto) 1 % (0-3) 0 % (0-3) Neutrophils # (Auto) 4.1 x10^3uL (1.8-7.7) 4.2 x10^3uL (1.8-7.7) Lymphocytes # (Auto) 3.1 x10^3/uL (1.0-4.8) 3.5 x10^3/uL (1.0-4.8) Monocytes # (Auto) 0.6 x10^3/uL (0.0-1.1) 0.7 x10^3/uL (0.0-1.1) Eosinophils # (Auto) 0.2 x10^3/uL (0.0-0.7) 0.3 x10^3/uL (0.0-0.7) Basophils # (Auto) 0.1 x10^3/uL (0.0-0.2) 0.0 x10^3/uL (0.0-0.2) Prothrombin Time 14.5 SEC (11.7-14.0) Prothromb Time International Ratio 1.2 (0.8-1.1) Activated Partial Thromboplast Time 37 SEC (24-38) Sodium Level 139 mmol/L (136-145) 143 mmol/L (136-145) Potassium Level 3.9 mmol/L (3.5-5.1) 4.7 mmol/L (3.5-5.1) Chloride Level 105 mmol/L (98-107) 104 mmol/L (98-107) Carbon Dioxide Level 25 mmol/L (21-32) 29 mmol/L (21-32) Anion Gap 9 (6-14) 10 (6-14) Blood Urea Nitrogen 14 mg/dL (8-26) 15 mg/dL (8-26) Creatinine 1.1 mg/dL (0.7-1.3) 1.2 mg/dL (0.7-1.3) Estimated GFR (Cockcroft-Gault) 67.6 61.1 BUN/Creatinine Ratio 13 (6-20) 13 (6-20) Glucose Level 98 mg/dL (70-99) 45 mg/dL (70-99) Calcium Level 8.5 mg/dL (8.5-10.1) 8.9 mg/dL (8.5-10.1) Total Bilirubin 0.4 mg/dL (0.2-1.0) 0.3 mg/dL (0.2-1.0) Aspartate Amino Transf (AST/SGOT) 14 U/L (15-37) 15 U/L (15-37) Alanine Aminotransferase (ALT/SGPT) 20 U/L (16-63) 29 U/L (16-63) Alkaline Phosphatase 53 U/L (46-116) 52 U/L (46-116) Troponin I Quantitative < 0.017 ng/mL (0.000-0.055) < 0.017 ng/mL (0.000-0.055) < 0.017 ng/mL (0.000-0.055) JK-Jea-C-Type Natriuretic Peptide 100 pg/mL (0-124) Total Protein 6.9 g/dL (6.4-8.2) 7.1 g/dL (6.4-8.2) Albumin 3.3 g/dL (3.4-5.0) 3.5 g/dL (3.4-5.0) Albumin/Globulin Ratio 0.9 (1.0-1.7) 1.0 (1.0-1.7) Triglycerides Level 174 mg/dL (0-150) Cholesterol Level 129 mg/dL (0-200) LDL Cholesterol, Calculated 59 mg/dL (0-100) VLDL Cholesterol, Calculated 35 mg/dL (0-40) Non-HDL Cholesterol Calculated 94 mg/dL (0-129) HDL Cholesterol 35 mg/dL (40-60) Cholesterol/HDL Ratio 3.7 Assessment/Plan Assessment/Plan 1. Chest pain with atypical features: Myocardial infarction be ruled out based on cardiac enzymes and EKG. Plan for ischemic evaluation in the form of stress test as an outpatient. Patient stated that he would like to get this done at [facility]. 2. Hyperlipidemia: Continue statin therapy 3. Smoking: Advised cessation Thank you for your consultation MIGUEL DAWKINS MD Nov 26, 2016 11:41
== END 2016-11-26 12:50 | disposition home or self-care (01) | DRG 311 ==
LOC: ER 13:34 → 6 SOUTH 15:00
PROVIDERS: ADMIT Internal Medicine; ATTEND Internal Medicine
DX: I20.9 Angina pectoris, unspecified (principal); E78.5 Hyperlipidemia, unspecified; I10 Essential (primary) hypertension; F43.10 Post-traumatic stress disorder, unspecified; R07.2 Precordial pain; F32.9 Major depressive disorder, single episode, unspecified; F17.210 Nicotine dependence, cigarettes, uncomplicated; N40.0 Benign prostatic hyperplasia without lower urinary tract symptoms; J44.9 Chronic obstructive pulmonary disease, unspecified; Z97.0 Presence of artificial eye; Z82.3 Family history of stroke; Z87.01 Personal history of pneumonia (recurrent); Z90.49 Acquired absence of other specified parts of digestive tract; Z79.899 Other long term (current) drug therapy; Z71.6 Tobacco abuse counseling
CPT/HCPCS: 36415; 71010; 80053; 80061; 83880; 84484; 85027; 85610; 85730; 93005; 99285-25